=== PATIENT | female | born 1945 | race Caucasian/White ===

== ENCOUNTER 2018-06-16 15:34 | Emergency (ER) | payer SELFPAY ==
--- NOTE | 2018-06-16 16:47 | RAD ---
PA AND LATERAL CHEST X-RAY: 06/16/18 HISTORY: Cough for one month. COMPARISON: None available. FINDINGS: The cardiac silhouette is borderline enlarged. The pulmonary vasculature is within normal limits. Vas cular calcifications seen in the thoracic aorta. Mild degenerative changes noted in the spine. IMPRESSION: 1. No acute cardiopulmonary process. 2. Borderline cardiomegaly. POS: [facility]
== END 2018-06-16 17:08 | disposition home or self-care (01) ==
LOC: ERS 15:34
DX: J20.9 Acute bronchitis, unspecified (principal); I25.2 Old myocardial infarction; Z86.73 Personal history of transient ischemic attack (TIA), and cerebral infarction without residual deficits; E78.5 Hyperlipidemia, unspecified; I10 Essential (primary) hypertension
CPT/HCPCS: 71046